=== PATIENT | female | born 2000 | race Caucasian/White ===

== ENCOUNTER 2020-03-13 17:23 | Inpatient (IN) | payer OTHER ==
[2020-03-13 18:12] VITALS: BMI 29.4
[2020-03-13] MEDS ORDERED: ELECTROLYTE-148 SOLN 1,000 ML IV SCH (19:00)
[2020-03-13] MEDS ORDERED: DINOPROSTONE 10 MG VAGINAL SUPPOSITORY VG ONE ×2 (19:00→22:14)
[2020-03-13 19:06] LABS: BASO % 0.3 % (0-2.0); EOS % 0.7 % (0-4.5); HEMATOCRIT 31.7 % (32.4-45.2); HEMOGLOBIN 10.6 GM/dL (10.7-15.3); LYMPH % 14.6 % (8-40); MCH 26.3 pg (25.7-33.7); MCHC 33.5 g/dl (32.0-36.0); MEAN CELL VOLUME 78.6 fl (80-96); MEAN PLT VOLUME 10.5 fl (7.5-11.1); MONO % 10.9 % (3.8-10.2); NEUT % 73.5 % (42.8-82.8); PLATELET COUNT 175 K/MM3 (134-434); RBC 4.03 M/mm3 (3.60-5.2); RDW 14.3 % (11.6-15.6); WHITE BLOOD COUNT 7.5 K/mm3 (4.0-10.0)
[2020-03-13 19:15] LABS: INR 0.94 (0.83-1.09); PROTHROMBIN TIME (PATIENT) 11.4 SEC (9.7-13.0)
[2020-03-13 19:17] LABS: ACTIVATED PTT 26.7 SECONDS (25.2-36.5)
[2020-03-13 19:30] LABS: CALCIUM 8.6 mg/dL (8.5-10.1)
[2020-03-13 19:31] LABS: BLOOD UREA NITROGEN 9.2 mg/dL (7-18)
[2020-03-13 19:34] LABS: CREATININE 0.7 mg/dL (0.55-1.3)
[2020-03-13] MEDS ORDERED: TERBUTALINE SULFATE 1 MG/1 ML VIAL SQ ONE (20:41)
[2020-03-13] MEDS ORDERED: TERBUTALINE SULFATE 1 MG/1 ML VIAL SQ STA (20:46)
[2020-03-13] MEDS ORDERED: ZOLPIDEM TARTRATE 5 MG TABLET ONE (22:09)
[2020-03-13] MEDS ORDERED: ZOLPIDEM TARTRATE 5 MG TABLET PO ONE (22:15)
[2020-03-14] MEDS ORDERED: PROMETHAZINE HCL 25 MG/1 ML VIAL ONE (01:19)
[2020-03-14] MEDS ORDERED: BUTORPHANOL TARTRATE 2 MG/ML VIAL ONE (01:19)
[2020-03-14] MEDS ORDERED: BUTORPHANOL TARTRATE 2 MG/ML VIAL IVPB ONE (02:30)
[2020-03-14] MEDS ORDERED: PROMETHAZINE HCL 25 MG/1 ML VIAL IVPB ONE (02:30)
[2020-03-14] MEDS ORDERED: FENTANYL/BUPIVACAINE/NS/PF - PCEA - 50 ML DISP.SYRIN EP ONE ×2 (02:34→06:10)
[2020-03-14] MEDS ORDERED: PCA PUMP NR ONE ×3 (02:36→06:47)
[2020-03-14] MEDS ORDERED: LIDO 2%/EPI 1:200000 PRESRVFRE (20 ML SDVIAL) ONE (02:43)
[2020-03-14] MEDS ORDERED: NALOXONE HCL 0.4 MG/ML VIAL IVPUSH PRN (03:17)
[2020-03-14] MEDS ORDERED: FENTANYL/BUPIVACAINE/NS/PF - PCEA - 50 ML DISP.SYRIN EP SCH (03:30)
[2020-03-14] MEDS ORDERED: METHYLERGONOVINE MALEATE 0.2 MG/1 ML AMP IM PRN (07:51)
[2020-03-14] MEDS ORDERED: BISACODYL 10 MG SUPP.RECT RC PRN (07:51)
[2020-03-14] MEDS ORDERED: BENZOCAINE 20% 57 GM BOTTLE TP PRN (07:51)
[2020-03-14] MEDS ORDERED: WITCH HAZEL 50% (TUCKS) 40 PAD/JAR PAD TP PRN (07:51)
[2020-03-14] MEDS ORDERED: BENZOCAINE 28 GM HEMORRHOIDAL OINTMENT TP PRN (07:51)
[2020-03-14] MEDS ORDERED: OXYTOCIN 20 UNITS in 0.9% NS 20 UNIT/1,000 ML INFUS.BAG IV SCH (08:00)
[2020-03-14] MEDS ORDERED: ACETAMINOPHEN 325 MG TABLET (FP) ONE (08:21)
[2020-03-14] MEDS ORDERED: IBUPROFEN 600 MG TABLET (FP) PO ONE (08:21)
[2020-03-14] MEDS: ACETAMINOPHEN 325 MG TABLET (FP) PO PRN ×3 (08:25→23:04)
[2020-03-14] MEDS: IBUPROFEN 600 MG TABLET (FP) PO PRN ×3 (08:25→23:05)
[2020-03-14] MEDS ORDERED: OXYTOCIN 20 UNITS in 0.9% NS 20 UNIT/1,000 ML INFUS.BAG IV ONE (09:14)
[2020-03-15] MEDS: IBUPROFEN 600 MG TABLET (FP) PO PRN (08:40)
[2020-03-15] MEDS: ACETAMINOPHEN 325 MG TABLET (FP) PO PRN (08:41)
[2020-03-15 09:05] LABS: BASO % 0.3 % (0-2.0); EOS % 1.4 % (0-4.5); HEMATOCRIT 27.4 % (32.4-45.2); HEMOGLOBIN 8.8 GM/dL (10.7-15.3); LYMPH % 17.3 % (8-40); MCH 25.6 pg (25.7-33.7); MCHC 32.1 g/dl (32.0-36.0); MEAN CELL VOLUME 79.8 fl (80-96); MEAN PLT VOLUME 9.9 fl (7.5-11.1); MONO % 8.2 % (3.8-10.2); NEUT % 72.8 % (42.8-82.8); PLATELET COUNT 142 K/MM3 (134-434); RBC 3.43 M/mm3 (3.60-5.2); WHITE BLOOD COUNT 9.4 K/mm3 (4.0-10.0)
[2020-03-15 10:03] VITALS: BP 129/69; PULSE 88; TEMP 98
[2020-03-15] MEDS ORDERED: SENNOSIDES/DOCUSATE COMBO (SENNA PLUS) TABLET (UD) PO PRN (22:00)
== END 2020-03-15 13:50 | disposition home or self-care (01) | DRG 560 ==
LOC: JLDR 17:23 → J3W 03-14 10:17
PROVIDERS: ADMIT Specialist; ATTEND Specialist
PROC: 3E0P7VZ Introduction of Hormone into Female Reproductive, Via Natural or Artificial Opening (ICD-10-PCS; 2020-03-13)
PROC: 10E0XZZ Delivery of Products of Conception, External Approach (ICD-10-PCS; principal; 2020-03-14)
PROC: 0W8NXZZ Division of Female Perineum, External Approach (ICD-10-PCS; 2020-03-14)
DX: O62.4 Hypertonic, incoordinate, and prolonged uterine contractions (principal); Z3A.39 39 weeks gestation of pregnancy; Z37.0 Single live birth
CPT/HCPCS: 36415; 59409; 80048; 85025; 85610; 85730; 86780; 86850; 86900; 86901